=== PATIENT | male | born 1980 | race African-American/Black ===

== ENCOUNTER 2018-02-14 03:10 | Emergency (ER) | payer MEDICAID ==
[~2018-02-14] VITALS: Ht 180.3 cm; Wt 117.9 kg
[2018-02-14 03:10] VITALS: BP 141/93
--- NOTE | 2018-02-14 03:10 | NUR ---
PT TOM RIVERAS. TAKEN TO BED 4
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
--- NOTE | 2018-02-14 03:20 | NUR ---
Dr. Carpenter evaluating patient at bedside.
--- NOTE | 2018-02-14 03:30 | NUR ---
call placed to [facility] for 5150 evaluation.
[2018-02-14 03:52] LABS: BASOPHILS % (AUTO) 0.8 % (0.0-2.0); EOSINOPHILS # (AUTO) 0.1 K/uL (0-0.4); EOSINOPHILS % (AUTO) 1.1 % (0.0-4.0); HEMATOCRIT 42.7 % (36-52); HEMOGLOBIN 14.1 g/dL (12.0-18.0); LYMPHOCYTES # (AUTO) 1.9 K/uL (2.0-11.5); LYMPHOCYTES % (AUTO) 32.6 % (20.5-51.1); MEAN CORPUSCULAR HEMOGLOBIN 30 pg (27-31); MEAN CORPUSCULAR HGB CONC 33 g/dL (33-37); MEAN CORPUSCULAR VOLUME 90.5 fL (80-94); MONOCYTES # (AUTO) 0.6 K/uL (0.8-1.0); NEUTROPHILS # (AUTO) 3.1 K/uL (1.8-7.7); NEUTROPHILS % (AUTO) 54.5 % (42.2-75.2); PLATELET COUNT (AUTO) 236 K/uL (140-450); RED BLOOD CELL COUNT(AUTO) 4.72 MIL/uL (4.20-6.10); WHITE BLOOD COUNT (AUTO) 5.7 K/uL (4.8-10.8)
--- NOTE | 2018-02-14 03:58 | NUR ---
[place] [facility] AT BEDSIDE
[2018-02-14 04:01] LABS: ANION GAP 9.4 (8-16); CARBON DIOXIDE 33.1 mmol/L (21-32); CHLORIDE 102 mmol/L (98-107); CREATININE 1.2 mg/dL (0.7-1.3); GFR ARICAN-AMERICAN 87 mL/min (>90); GLUCOSE 111 mg/dL (74-106); POTASSIUM 3.5 mmol/L (3.5-5.1); SODIUM SERUM 141 mmol/L (136-145); UREA NITROGEN, BLOOD 15 mg/dL (7-18)
[2018-02-14 04:07] LABS: ALBUMIN 3.7 g/dL (3.4-5.0); ASPARTATE AMINOTRANSFERASE 34 U/L (15-37); LIPASE 119 U/L (73-393); TOTAL BILIRUBIN 0.5 mg/dL (0.0-1.0)
[2018-02-14 04:08] LABS: SALICYLATE < 2.8 mg/dL (2.8-20.0)
[2018-02-14 04:09] LABS: ACETAMINOPHEN < 0.5 ug/ml (10-30)
--- NOTE | 2018-02-14 04:10 | NUR ---
PT PLACED IN HOSPITAL GOWN, BELONGINGS REMOVED AND PLACED W/ SECURITY.
--- NOTE | 2018-02-14 04:36 | NUR ---
PT PROVIDED W/ URINAL, STATES HE MATTHEW URINATE AT THIS TIME, REQUESTS WATER.
--- NOTE | 2018-02-14 05:00 | NUR ---
URINAL SAMPLE COLLECTED AND GIVEN TO LAB.
[2018-02-14 05:41] LABS: APPEARANCE,URINE CLEAR (CLEAR); BILIRUBIN,URINE NEGATIVE (NEGATIVE); BLOOD, URINE NEGATIVE (NEGATIVE); COLOR,URINE YELLOW (YELLOW); LEUKOCYTE ESTERASE ,URINE NEGATIVE (NEGATIVE); NITRITE, URINE NEGATIVE (NEGATIVE); PH,URINE 8.5 (5.0-9.0); UGLUCOSE NEGATIVE (NEGATIVE)
[2018-02-14 05:51] LABS: RBC,URINE NONE SEEN /HPF (0-5); WBC,URINE 0-5 (RARE) /HPF (0-5)
[2018-02-14 05:55] LABS: BARBITURATE, URINE NEG. ng/ml (NEG <=200); BENZODIAZEPINE, URINE NEG. ng/mL (NEG <=200); CANNABINOID, URINE POS. ng/mL (NEG <=50); COCAINE, URINE NEG. ng/mL (NEG <=300); OPIATE, URINE NEG. ng/mL (NEG <=2000); PHENCYCLIDINE SCREEN,URINE NEG. ng/mL (NEG <=25)
--- NOTE | 2018-02-14 06:00 | NUR ---
pt resting in bed, will continue to monitor.
--- NOTE | 2018-02-14 06:36 | NUR ---
TELE PSYCH REQUESTED [place] DR. BRISENO
--- NOTE | 2018-02-14 06:41 | NUR ---
CALLED TELE [employer]. TOLD THAT A DOCTOR WILL CONTACT US BACK WITHIN 30 MIN
--- NOTE | 2018-02-14 06:45 | NUR ---
SPOKE W/ TELEPSYCH MD MENDEZ, REPORT GIVEN, MD WILL CALL W/IN THE NEXT 3 MINUTES.
--- NOTE | 2018-02-14 06:45 | NUR ---
RETURN CALL FROM TELE PSYCH DOCTOR, DR. MENDEZ, WHO SPOKE WITH LESLEE ROJAS
--- NOTE | 2018-02-14 06:50 | NUR ---
AT BEDSIDE FOR TELEPSYCH CONSULT.
--- NOTE | 2018-02-14 06:59 | NUR ---
LESLEE ROSS AT BEDSIDE WITH TELEPSYCH CART WITH DR. MENDEZ REMOTELY EVALUATING PATIENT FOR PSYCH CONSULT
--- NOTE | 2018-02-14 07:18 | NUR ---
SPOKE W/ BARLT FROM TELEPSYCH ADVISED PT CAN BE D/C, REPORT WILL BE FAXED OVER, ER MADE AWARE.
--- NOTE | 2018-02-14 07:34 | NUR ---
PT RESTING ON BED COMFORTABLY;PT CALM AND COOPERATIVE AT THIS TIME;NO ACUTE DISTRESS NOTED;WILL CONTINUE TO MONITOR PT.
--- NOTE | 2018-02-14 08:35 | NUR ---
REPORT RECIEVED FROM TELEPSYCH MD AND GIVEN TO DR BRISENO
--- NOTE | 2018-02-14 08:46 | NUR ---
PT REFUSING TO BE DC'D;EXPLAINED TO HIM THAT HE IS MEDICALL CLEARED AND THE PSCHIATRIST DROPPED THE 5150 HOLD;pT IS FURIUS AND STATES I'M GONNA MOHAN THAT LADY".
--- NOTE | 2018-02-14 08:58 | NUR ---
Patient discharged with v/s stable. Written and verbal after care instructions given and explained. Patient alert, oriented and verbalized understanding of instructions. Ambulatory with steady gait. All questions addressed prior to discharge. ID band removed. Patient advised to follow up with PMD. Opportunity to ask questions provided and answered.PT DON'T WANT TO TAKE CONSULT REPORT FROM DR CRAIG MENDEZ AND THROW IT TO THE FLOOR.
[2018-02-14 08:59] VITALS: BP 124/72
== END 2018-02-14 08:58 | disposition home or self-care (01) ==
LOC: MED 03:10
DX: R45.851 Suicidal ideations (principal); R10.13 Epigastric pain
CPT/HCPCS: 36415; 80053; 80305; 81001; 83690; 85025; 99285; G0480; G0482